=== PATIENT | male | born 1985 | race Caucasian/White ===

== ENCOUNTER → 2018-05-13 09:45 | Outpatient (REF) | payer BC, SELFPAY ==
[2018-05-13 12:31] LABS: HCT 46.4 % (40.0-50.0); HGB 15.8 g/dL (13.5-17.5); Mean Corp. HGB Concentration 34.1 g/dL (32.0-36.0); Mean Corpuscular Hemoglobin 29.7 pg (27.0-33.0); Mean Corpuscular Volume 87.2 fL (80-95); Platelet Count 225 x1000/uL (130-400); RBC 5.32 m/cumm (4.50-6.00); RBC Distribution Width 13.2 % (11.8-14.1); White Blood Cell Count 8.94 k/cumm (4.4-10.8)
[2018-05-13 12:50] LABS: ALT 128 U/L (12-78); AST 41 U/L (15-37); Albumin 4.2 g/dL (3.4-5.0); Alkaline Phosphatase 66 U/L (46-116); Anion Gap 11.6 mmol/L (3-11); BUN 15 mg/dL (7-18); Bilirubin, Total 1.3 mg/dL (0.2-1.0); CO2 24.4 mmol/L (21.0-32.0); CREATININE 1.08 mg/dL (0.70-1.30); Calcium 9.1 mg/dL (8.5-10.1); Chloride 104 mmol/L (98-107); Cholesterol 218 mg/dL (50-200); Glucose 88 mg/dL (70-100); HDL Cholesterol 45 mg/dL (40-60); LDL CHOLESTEROL 151 mg/dL (<100); Potassium 4.3 mmol/L (3.5-5.1); Sodium 140 mmol/L (136-145); Total Protein 7.4 g/dL (6.4-8.2); Triglyceride 166 mg/dL (30-150)
== END ==
LOC: NCHCN 09:45
PROVIDERS: PCP Family Medicine; Visit Provider Family Medicine
DX: Z00.00 Encounter for general adult medical examination without abnormal findings (principal); Z13.0 Encounter for screening for diseases of the blood and blood-forming organs and certain disorders involving the immune mechanism; Z13.228 Encounter for screening for other metabolic disorders; Z13.220 Encounter for screening for lipoid disorders
CPT/HCPCS: 80053; 80061; 83721; 85027

== ENCOUNTER → 2018-05-20 16:33 | Outpatient (REF) | payer BC, SELFPAY ==
[2018-05-20 23:45] LABS: COMMENT (LAB VIEW ONLY) 175.35 mg/dL
== END ==
LOC: NCHCN 16:33
PROVIDERS: PCP Family Medicine; Visit Provider Family Medicine
DX: I10 Essential (primary) hypertension (principal)
CPT/HCPCS: 82043; 82570

== ENCOUNTER 2019-03-17 23:54 | Emergency (ER) | payer BC, SELFPAY ==
[2019-03-18 00:04] VITALS: BP 145/79; PULSE 117; RESP 18; TEMP 36.4; O2SAT 100
--- NOTE | 2019-03-18 00:33 | W.ED.GENAD ---
Discharge Plan Disposition Patient Disposition: HOME Condition: Good Discharge Details Chief Complaint: Nk/Back Pain Clinical Impression: Low back strain, Muscle spasm Primary Care Provider: Genie Gaines ED Provider: Tino Oconnors and New Rx's Prescriptions: New lidocaine [Lidoderm] 5 % Adhesive Patch,Medicated 1 patch topical DIRECTED Qty: 15 RF: 0 cyclobenzaprine [cyclobenzaprine] 10 MG tablet 10 mg PO Q6H PRN PRN (Reason: Spasms) Qty: 15 RF: 0 ibuprofen 600 mg tablet 600 mg PO TID-QID PRN (Reason: pain) Qty: 20 RF: 0 Continued lisinopril 5 MG tablet 5 mg PO DAILY RF: 0 Discharge Instructions Instructions: Low Back Strain (ED), Muscle Spasm (ED) Additional Instructions: Take it easy over the next few days but do not just lie around. You need to do gentle stretching and continue to move so he did not get more stiff. Ice on and off for the next couple of days. Switch over to heat this weekend. Follow-up with primary care next week if not doing better. Return to emergency department if you develop significantly worsening pain, fever, abdominal pain, neurologic symptoms such as numbness or weakness in the legs, bladder or bowel dysfunction Referrals: Genie Gaines [Primary Care Provider] - Medical Decision Making Patient presenting with low back strain and muscle spasm status post injury earlier today while playing [employer]. He has no neurologic symptoms. He has normal strength and sensation distally. He has no abdominal pain and his abdominal exam is benign. He is tender in the right lumbar/sacral area. There is no spinal tenderness. Patient moving a little better now and did take ibuprofen at home. Will apply Lidoderm patch here. Will also give Flexeril. Will continue ibuprofen. Ice on and off for the next 48 hours. Gentle stretching and movement. Switch over to heat on the weekend. Follow-up with primary care next week if continued problems. Off work for the weekend. Return to ED for abdominal pain, neurologic symptoms, bladder or bowel dysfunction. HPI General Mode of arrival: EMS. Date/Time Provider Initiated Documentation: 03/18/19 00:22. Limitations to Documentation: no limitations. Information obtained by: patient. HPI Narrative: Patient presents to ED by ambulance with severe low back spasm. Patient injured his back earlier today while playing [employer]. He definitely felt the injury occur but did not think much of it. However, as time went on back became more stiff. When he tried to get up to go to the bathroom he developed severe lancing pain in the right lower back radiating across the left. He was unable to move because of the pain. There is no radiation of pain down his legs. He did take ibuprofen as well as a couple shots of vodka. EMS was called because he was so uncomfortable. He has no abdominal pain. He has no neurologic symptoms. He is doing a little better and able to move a little better currently. Related Data Home Medications Medication Instructions Recorded Confirmed lisinopril 5 mg PO DAILY 01/31/16 03/18/19 cyclobenzaprine 10 mg PO Q6H PRN PRN #15 tab 03/18/19 ibuprofen 600 mg PO TID-QID PRN #20 tab 03/18/19 lidocaine [Lidoderm] 1 patch TOPICAL DIRECTED #15 03/18/19 each Previous Rx's Medication Instructions Recorded cyclobenzaprine 10 mg PO Q6H PRN PRN #15 tab 03/18/19 ibuprofen 600 mg PO TID-QID PRN #20 tab 03/18/19 lidocaine [Lidoderm] 1 patch TOPICAL DIRECTED #15 03/18/19 each Allergies Allergy/AdvReac Type Severity Reaction Status Date / Time No Known Allergies Allergy Unverified 03/18/19 00:14 General Stated Complaint: Nk/Back Pain HANH: 3 Review of Systems Review of Systems As documented in HPI otherwise negative as below. Const: no fever, chills, weakness Resp: no cough, SOB, pleuritic pain CV: no CP, diaphoresis, edema, syncope GI: no abdominal pain, nausea, vomiting, diarrhea Neuro: no headache, numbness, focal weakness, confusion PFSH Medical History HTN (hypertension) (Chronic) Social History Smoking/Tobacco Use Status: Never Alcohol Intake: current Alcohol Intake frequency: holidays/special occasions only Drug use: Current Sobriety Do you feel safe at home: Yes Do you feel safe in your relationship?: Yes Exam Narrative Exam Narrative: Vitals: Afebrile. Elevated heart rate and blood pressure likely due to discomfort. Const: WDWN male in NAD. HEENT: NC/AT. Eyes: Normal conjunctiva and sclera. Neck: Supple. Trachea midline. Lungs: Normal respiratory effort. Cor: RRR. Good peripheral pulses. GI: Soft. NT/ND. No guarding or rebound. Back: No CVAT. Tender to palpation in the low right lumbar/sacral area. Limited ROM of lower back and lower extremities because of low back pain. Neuro: A+O x 3. CN grossly in tact. Normal strength and sensation in the lower extremities. Ext: No C/C/E. No deformity or tenderness. Skin: Warm and dry without rash. Course Vital Signs Temperature 97.5 F L 03/18/19 00:04 Pulse 117 H 03/18/19 00:04 Respiratory Rate 18 03/18/19 00:04 Blood Pressure 145/79 H 03/18/19 00:04 Pulse Oximetry 100 03/18/19 00:04 Temperature 97.5 F L 03/18/19 00:04 Temperature Source Temporal Artery Scan 03/18/19 00:04 Pulse 117 H 03/18/19 00:04 Respiratory Rate 18 03/18/19 00:04 Respiratory Effort 03/18/19 00:04 Blood Pressure 145/79 H 03/18/19 00:04 Pulse Oximetry 100 03/18/19 00:04 Oxygen Delivery Method Room Air 03/18/19 00:04 Oxygen Flow Rate 0 03/18/19 00:04 Pain Level 3 03/18/19 00:12 Comment 03/18/19 00:04
[2019-03-18] MEDS: Cyclobenzaprine 10 MG TAB PO (00:42)
[2019-03-18] MEDS: Lidocaine 5% Patch 1 PATCH TP ×2 (00:42→01:43)
--- NOTE | 2019-03-18 00:46 | ED.GENADUL_ITS ---
Discharge Plan Disposition Patient Disposition: HOME Condition: Good Discharge Details Chief Complaint: Nk/Back Pain Clinical Impression: Low back strain, Muscle spasm Primary Care Provider: Genie Gaines ED Provider: Tino Oconnors and New Rx's Prescriptions: New lidocaine [Lidoderm] 5 % Adhesive Patch,Medicated 1 patch topical DIRECTED Qty: 15 RF: 0 cyclobenzaprine [cyclobenzaprine] 10 MG tablet 10 mg PO Q6H PRN PRN (Reason: Spasms) Qty: 15 RF: 0 ibuprofen 600 mg tablet 600 mg PO TID-QID PRN (Reason: pain) Qty: 20 RF: 0 Continued lisinopril 5 MG tablet 5 mg PO DAILY RF: 0 Discharge Instructions Instructions: Low Back Strain (ED), Muscle Spasm (ED) Additional Instructions: Take it easy over the next few days but do not just lie around. You need to do gentle stretching and continue to move so he did not get more stiff. Ice on and off for the next couple of days. Switch over to heat this weekend. Follow-up with primary care next week if not doing better. Return to emergency department if you develop significantly worsening pain, fever, abdominal pain, neurologic symptoms such as numbness or weakness in the legs, bladder or bowel dysfunction Referrals: Genie Gaines [Primary Care Provider] - Medical Decision Making Patient presenting with low back strain and muscle spasm status post injury earlier today while playing [employer]. He has no neurologic symptoms. He has normal strength and sensation distally. He has no abdominal pain and his abdominal exam is benign. He is tender in the right lumbar/sacral area. There is no spinal tenderness. Patient moving a little better now and did take ibuprofen at home. Will apply Lidoderm patch here. Will also give Flexeril. Will continue ibuprofen. Ice on and off for the next 48 hours. Gentle stretching and movement. Switch over to heat on the weekend. Follow-up with primary care next week if continued problems. Off work for the weekend. Return to ED for abdominal pain, neurologic symptoms, bladder or bowel dysfunction. HPI General Mode of arrival: EMS . Date/Time Provider Initiated Documentation: 03/18/19 00:22 . Limitations to Documentation: no limitations . Information obtained by: patient . HPI Narrative: Patient presents to ED by ambulance with severe low back spasm. Patient injured his back earlier today while playing [employer]. He definitely felt the injury occur but did not think much of it. However, as time went on back became more stiff. When he tried to get up to go to the bathroom he developed severe lancing pain in the right lower back radiating across the left. He was unable to move because of the pain. There is no radiation of pain down his legs. He did take ibuprofen as well as a couple shots of vodka. EMS was called because he was so uncomfortable. He has no abdominal pain. He has no neurologic symptoms. He is doing a little better and able to move a little better currently. Related Data Home Medications Medication Instructions Recorded Confirmed lisinopril 5 mg PO DAILY 01/31/16 03/18/19 cyclobenzaprine 10 mg PO Q6H PRN PRN #15 tab 03/18/19 ibuprofen 600 mg PO TID-QID PRN #20 tab 03/18/19 lidocaine [Lidoderm] 1 patch TOPICAL DIRECTED #15 03/18/19 each Previous Rx's Medication Instructions Recorded cyclobenzaprine 10 mg PO Q6H PRN PRN #15 tab 03/18/19 ibuprofen 600 mg PO TID-QID PRN #20 tab 03/18/19 lidocaine [Lidoderm] 1 patch TOPICAL DIRECTED #15 03/18/19 each Allergies Allergy/AdvReac Type Severity Reaction Status Date / Time No Known Allergies Allergy Unverified 03/18/19 00:14 General Stated Complaint: Nk/Back Pain HANH: 3 Review of Systems Review of Systems As documented in HPI otherwise negative as below. Const: no fever, chills, weakness Resp: no cough, SOB, pleuritic pain CV: no CP, diaphoresis, edema, syncope GI: no abdominal pain, nausea, vomiting, diarrhea Neuro: no headache, numbness, focal weakness, confusion PFSH Medical History HTN (hypertension) (Chronic) Social History Smoking/Tobacco Use Status: Never Alcohol Intake: current Alcohol Intake frequency: holidays/special occasions only Drug use: Current Sobriety Do you feel safe at home: Yes Do you feel safe in your relationship?: Yes Exam Narrative Exam Narrative: Vitals: Afebrile. Elevated heart rate and blood pressure likely due to discomfort. Const: WDWN male in NAD. HEENT: NC/AT. Eyes: Normal conjunctiva and sclera. Neck: Supple. Trachea midline. Lungs: Normal respiratory effort. Cor: RRR. Good peripheral pulses. GI: Soft. NT/ND. No guarding or rebound. Back: No CVAT. Tender to palpation in the low right lumbar/sacral area. Limited ROM of lower back and lower extremities because of low back pain. Neuro: A+O x 3. CN grossly in tact. Normal strength and sensation in the lower extremities. Ext: No C/C/E. No deformity or tenderness. Skin: Warm and dry without rash. Course Vital Signs Temperature 97.5 F L 03/18/19 00:04 Pulse 117 H 03/18/19 00:04 Respiratory Rate 18 03/18/19 00:04 Blood Pressure 145/79 H 03/18/19 00:04 Pulse Oximetry 100 03/18/19 00:04 Temperature 97.5 F L 03/18/19 00:04 Temperature Source Temporal Artery Scan 03/18/19 00:04 Pulse 117 H 03/18/19 00:04 Respiratory Rate 18 03/18/19 00:04 Respiratory Effort 03/18/19 00:04 Blood Pressure 145/79 H 03/18/19 00:04 Pulse Oximetry 100 03/18/19 00:04 Oxygen Delivery Method Room Air 03/18/19 00:04 Oxygen Flow Rate 0 03/18/19 00:04 Pain Level 3 03/18/19 00:12 Comment 03/18/19 00:04
[2019-03-18 04:34] VITALS: BP 144/84; PULSE 88; RESP 20; O2SAT 100
== END 2019-03-18 04:34 | disposition home or self-care (01) ==
LOC: ER 03-18 04:32
PROVIDERS: Emergency Provider Emergency Medicine; PCP Family Medicine
DX: M62.830 Muscle spasm of back (principal); S39.012A Strain of muscle, fascia and tendon of lower back, initial encounter; X50.9XXA Other and unspecified overexertion or strenuous movements or postures, initial encounter; Y93.73 Activity, racquet and hand sports
CPT/HCPCS: 99284

== ENCOUNTER 2019-08-25 11:08 | Outpatient (REF) | payer BC, SELFPAY ==
[2019-08-25 14:04] LABS: ALT 100 U/L (16-63); AST 35 U/L (15-37); Albumin 4.3 g/dL (3.4-5.0); Alkaline Phosphatase 64 U/L (46-116); Anion Gap 10.6 mmol/L (3-11); BUN 19 mg/dL (7-18); Bilirubin, Total 1.3 mg/dL (0.2-1.0); CO2 29.4 mmol/L (21.0-32.0); CREATININE 0.99 mg/dL (0.70-1.30); Calcium 9.8 mg/dL (8.5-10.1); Calculated LDL 158 mg/dL; Chloride 103 mmol/L (98-107); Cholesterol 252 mg/dL (50-200); Glucose 94 mg/dL (70-100); HDL Cholesterol 47 mg/dL (40-60); Potassium 4.3 mmol/L (3.5-5.1); Sodium 143 mmol/L (136-145); Triglyceride 235 mg/dL (30-150)
== END 2019-08-25 11:28 ==
LOC: NCHCN 11:08
PROVIDERS: PCP Family Medicine; Visit Provider Family Medicine
DX: I10 Essential (primary) hypertension (principal); Z00.00 Encounter for general adult medical examination without abnormal findings
CPT/HCPCS: 80053; 80061

== ENCOUNTER 2020-09-13 09:22 | Outpatient (REF) | payer BC, SELFPAY ==
[2020-09-13 22:27] LABS: Abs Immature Grans 0.04 10^3/uL (0.0-0.06); Absolute Basophil Count 0.07 10^3/uL (0.0-0.2); Absolute Eosinophil Count 0.25 10^3/uL (0.0-0.7); Absolute Lymphocyte Count 3.74 10^3/uL (1.2-3.4); Absolute Monocyte Count 0.67 10^3/uL (0.1-0.8); Absolute Neutrophil Count 3.89 10^3/uL (1.2-6.7); Basophils % 0.8; Eosinophils % 2.9; HCT 47.3 % (40.0-50.0); HGB 15.7 g/dL (13.5-17.5); Immature Grans % 0.5; Lymphocytes % 43.2; MCHC 33.2 % (32.0-36.0); MCV 90.4 fL (80-95); Monocytes % 7.7; Neutrophils % 44.9; Nucleated RBC 0 %; Platelet Count 234 10^3/uL (130-400); RBC 5.23 10^6/uL (4.36-5.78); RDW 12.2 % (11.8-14.1); RDW-SD 39.9 fL; WBC 8.66 10^3/uL (4.4-10.8)
[2020-09-13 22:41] LABS: Calculated LDL 146 mg/dL (<100); Cholesterol 220 mg/dL (<200); HDL Cholesterol 42 mg/dL (40-60); Triglyceride 163 mg/dL (<150)
[2020-09-14 04:41] LABS: Vitamin D 25 Total 20.6 ng/ml (30-100)
== END 2020-09-13 09:42 ==
LOC: NCHCN 09:22
PROVIDERS: PCP Family Medicine; Visit Provider Family Medicine
DX: Z00.00 Encounter for general adult medical examination without abnormal findings (principal); I10 Essential (primary) hypertension
CPT/HCPCS: 80061; 82306; 85025

== ENCOUNTER 2021-03-26 08:11 | Outpatient (REF) | payer BC, SELFPAY ==
[2021-03-26 15:10] LABS: ALT 54 U/L (16-63); AST 30 U/L (15-37); Albumin 4.1 g/dL (3.4-5.0); Alkaline Phosphatase 82 U/L (46-116); Anion Gap 8.7 mmol/L (3-11); BUN 17 mg/dL (7-18); Bilirubin, Total 1.2 mg/dL (0.2-1.0); CO2 29.3 mmol/L (21.0-32.0); CREATININE 1.1 mg/dL (0.70-1.30); Calcium 9.7 mg/dL (8.5-10.1); Calculated LDL 148 mg/dL (<100); Chloride 106 mmol/L (98-107); Cholesterol 214 mg/dL (<200); Glucose 98 mg/dL (74-106); HDL Cholesterol 40 mg/dL (40-60); Potassium 4.8 mmol/L (3.5-5.1); Sodium 144 mmol/L (136-145); Total Protein 7.6 g/dL (6.4-8.2); Triglyceride 132 mg/dL (<150)
== END 2021-03-26 08:12 | disposition home or self-care (01) ==
LOC: NCHCN 08:11
PROVIDERS: PCP Family Medicine; Visit Provider Family Medicine
DX: Z00.00 Encounter for general adult medical examination without abnormal findings (principal); I10 Essential (primary) hypertension
CPT/HCPCS: 80053; 80061

== ENCOUNTER 2022-03-09 23:35 | Emergency (ER) | payer BC, SELFPAY ==
[2022-03-09 23:53] VITALS: BP 156/112; PULSE 77; RESP 18; TEMP 37; O2SAT 99
--- NOTE | 2022-03-10 00:15 | DI.CT_ITS ---
Exam(s) CT ABDOMEN PELVIS WO EXAM: CT ABDOMEN PELVIS WO CLINICAL HISTORY: ruq pain, eval gb. TECHNIQUE: Imaging Protocol: Axial computed tomography images with coronal and sagittal reformatted images were created and reviewed. COMPARISON: No exams were available for comparison FINDINGS: ABDOMEN: Lung Bases: Normal where visualized. Liver: No hepatomegaly. No measurable mass. Gallbladder and biliary tract: No radiodense calculus or biliary ductal dilation. Pancreas: Normal density, no abnormal calcifications or inflammatory process. Spleen: Normal. Kidneys: Normal size, contour and axis.No radiodense stones or obstructive uropathy. No masses seen. Adrenal glands: No mass is seen. Lymph nodes: There are prominent lymph nodes seen in the right lower quadrant measuring up to 1 cm wh ich may reflect mesenteric adenitis. Abdominal Aorta: Abdominal portion non-dilated. PELVIS: Bladder:Symmetric distention, no gross wall thickening. Bowel: No obstruction or bowel wall thickening. Appendix is unremarkable. Peritoneal cavity: No ascites, collection or mesenteric inflammatory response. No free air. Reproductive organs: Within normal limits. Bones: Within normal limits. Soft Tissues: Within normal limits. IMPRESSION: 1. Unremarkable gallbladder. No biliary ductal dilatation. 2. Mildly prominent lymph nodes in the right lower quadrant which may represent mesenteric adenitis. RADIATION DOSE DELIVERED: 1,203.32mGy.cm Total DLP DATA REPOSITORY: All CT scans at this facility are submitted to the National Radiology Data Registry (NRDR) Dose Index Registry (DIR) with the [employer] ([employer]). RADIATION OPTIMIZATION: All CT scans at this facility use at least one of these dose optimization te chniques: automated exposure control; mA and/or kV adjustment per patient size (includes targeted exa ms where dose is matched to clinical indication); or iterative reconstruction.
--- NOTE | 2022-03-10 00:50 | ED.GENADUL_ITS ---
Discharge Plan Disposition Patient Disposition: HOME Condition: Good Discharge Details Clinical Impression: Hepatitis, Abdominal pain Primary Care Provider: Genie Gaines ED Provider: Guido Garza Home Meds and New Rx's Prescriptions: Continued lisinopril 5 MG tablet 5 mg PO DAILY lidocaine [Lidoderm] 5 % Adhesive Patch,Medicated 1 patch topical DIRECTED Qty: 15 0RF Rx Instructions: 12 hours on and 12 hours off. Apply 1 patch to most painful area. cyclobenzaprine 10 MG tablet 10 mg PO Q6H PRN PRN (Reason: Spasms) Qty: 15 0RF ibuprofen 600 mg tablet 600 mg PO TID-QID PRN (Reason: pain) Qty: 20 0RF Discharge Instructions Instructions: Abdominal Pain (ED) Additional Instructions: At this time you have evidence of very mild hepatitis. It is not overly clear as to why you have this. We have scheduled an outpatient ultrasound for further evaluation. They will contact you for the appointment time. Additionally on Friday/Friday/, please return to have your blood redrawn once to reassess where your liver function is. Additionally, it is not abundantly clear if the supplements you are taking are causing the, and I would recommend that you hold the supplements for the time being. Please avoid any alcohol, do not take any Tylenol. Additionally there is concern that some of your pain may be secondary to a spasm of your gallbladder. Please avoid any fatty foods or greasy foods. If you notice any worsening of your symptoms, or any new symptoms such as vomiting, diarrhea, fever, chills, shortness of breath, chest pain, numbness, weakness, or fainting , please return immediately to the emergency department for reevaluation. Please follow up with your primary care provider as soon as possible for reassessment and reevaluation. As always, it was a pleasure participating in your medical care today. Referrals: Genie Gaines [Primary Care Provider] - Medical Decision Making 36-year-old male with no significant past medical history who presents today for evaluation of right upper quadrant pain. Patient ate a mixed vegetable dinner with some garlic bread at around 7 PM, about 3 hours later at around 1030 he developed sudden onset right upper quadrant pain with associated nausea, one episode of vomiting, and one episode of diarrhea. He describes the pain is achy with a sharp component. It goes from the right upper quadrant to his right back. He denies any urinary complaints, frequency, hematuria or dysuria. At the time the patient arrived in the ER the pain transition from a 10 out of 10 down to a 3 out of 10. However during assessment the pain went back up to 7 out of 10. Patient does admit to a slight amount of sweating. He denies any chest pain or shortness of breath. He denies any family history of cardiac disease at young age. He denies any numbness or tingling. He denies any tearing or ripping sensation in the chest. He denies any pleuritic chest pain. No other complaints at this time. No other modifying factors Physical exam demonstrates mild right upper quadrant pain. Bedside ultrasound shows an enlarged gallbladder. Differential is highest for biliary colic, less likely pancreatitis. Cholecystitis is certainly of concern. Patient did not have an overly fatty meal tonight, however he has been eating extremely low-fat high vegetable diet normally, so a small amount of all of oil may have had a component. We will treat the patient's pain, get laboratory evaluation, CT scan, monitor closely.. Symptoms inconsistent with ACS. 2:14 AM Laboratory work-up has returned, patient has mild white count, no bandemia though. Electrolytes stable. Renal function good. Bilirubin normal. AST is 187, ALT is 171. Patient has never had levels like this before. Lipase normal. Alk phos normal. Patient states that he is in a monogamous relationship. He has not had any seafood for 5 years. He sticks to a diet strictly vegetables. He denies any IV or illicit drug use ever. He has not drunk any alcohol for the past month, and before that he would only drink 2 beers a week. He denies any acetaminophen use. STD related hepatitis is low on the differential, however we will send out a hepatitis panel. Dietary hepatitis is a slight concern. CT scan shows evidence of a normal gallbladder, he does have some mild mesenteric adenitis, there is also some mild. Radiology does recommend further ultrasound evaluation. At this time patient feels well, feels comfortable going home. Of note he is on 2 herbal supplements, ashwagandha and tongcat-ali, and there are certainly some case reports of this causing hepatitis. We will recommend that he stop these. With no evidence of jaundice, persistent right upper quadrant pain, or signs of toxic encephalopathy, I do feel that the patient is stable for discharge with close follow-up. She does already have a PCP follow-up scheduled. We will place an order for an outpatient ultrasound, as well as outpatient repeat labs for reassessment. Recommend cessation of supplements, avoiding Tylenol, avoiding alcohol, and close follow-up. I have extensively reviewed the treatment plan and discharge instructions with the patient. I have addressed all patient concerns at this time. The patient was made aware of what symptoms to monitor for that would warrant a return to the emergency department. Discussed the plan with the patient, they demonstrate verbal understanding and agreement with our assessment and plan at this time. The documentation in this chart was dictated using [employer] dictation software. Please excuse any dictation errors. FINDINGS: Lungs: The visualized lung bases show no consolidation. Liver: The liver is normal in size. There is mild, geographic hepatic steatosis. Gallbladder and bile ducts: No calcified gallstones identified. There is no pericholecystic fluid or gallbladder wall thickening. The common bile duct is normal in diameter. Pancreas: Normal size and homogeneous density. No ductal dilation. Spleen: Normal. No splenomegaly. Adrenal glands: Normal. No mass. Kidneys and ureters: No evidence of hydronephrosis. No renal or ureteral calculi. Stomach and bowel: There is no evidence of small bowel or colonic obstruction. There is moderate fecal stasis throughout the colon. The cecum is in the upper pelvis. The terminal ileum is at the level of the iliac crest. Appendix: A normal appendix is identified Intraperitoneal space: No free air. No significant fluid collection. Vasculature: No abdominal aortic aneurysm. Lymph nodes: Medial to the cecum there is a conglomerate of nonenlarged but prominent mesenteric lymph nodes as large as 10 mm consistent with mesenteric adenitis. Urinary bladder: The bladder shows a normal contour and is free of calcific opac ities. Reproductive: Unremarkable as visualized. Bones/joints: No acute fracture. No evidence of bone destruction. Soft tissues: Unremarkable. IMPRESSION: 1. Normal CT appearance of the gallbladder and bile ducts. 2. Findings consistent with mesenteric adenitis. Clinical correlation is necessary. 3. Mild geographic hepatic steatosis. Consider correlation with a 2nd modality such as ultrasound or MRI to exclude the less likely possibility of an infiltrative process, if clinically indicated. 4. Moderate colonic fecal stasis. Thank you for allowing us to participate in the care of your patient. Dictated and Authenticated by: José Sorto MD 03/10/2022 1:30 AM Eastern Time ([place] & [place]) HPI General Date/Time Provider Initiated Documentation: 03/09/22 23:40 . HPI Narrative: 36-year-old male with no significant past medical history who presents today for evaluation of right upper quadrant pain. Patient ate a mixed vegetable dinner with some garlic bread at around 7 PM, about 3 hours later at around 1030 he developed sudden onset right upper quadrant pain with associated nausea, one episode of vomiting, and one episode of diarrhea. He describes the pain is achy with a sharp component. It goes from the right upper quadrant to his right back. He denies any urinary complaints, frequency, hematuria or dysuria. At the time the patient arrived in the ER the pain transition from a 10 out of 10 down to a 3 out of 10. However during assessment the pain went back up to 7 out of 10. Patient does admit to a slight amount of sweating. He denies any chest pain or shortness of breath. He denies any family history of cardiac disease at young age. He denies any numbness or tingling. He denies any tearing or ripping sensation in the chest. He denies any pleuritic chest pain. No other complaints at this time. No other modifying factors Related Data Home Medications Medication Instructions Recorded Confirmed lisinopril 5 mg tablet 5 mg PO DAILY 01/31/16 03/10/22 cyclobenzaprine 10 mg tablet 10 mg PO Q6H PRN PRN Spasms #15 03/18/19 tabs ibuprofen 600 mg tablet 600 mg PO TID-QID PRN pain #20 tabs 03/18/19 lidocaine 5 % topical patch 1 patch topical DIRECTED #15 ea 03/18/19 (Lidoderm) Previous Rx's Medication Instructions Recorded cyclobenzaprine 10 mg tablet 10 mg PO Q6H PRN PRN Spasms #15 03/18/19 tabs ibuprofen 600 mg tablet 600 mg PO TID-QID PRN pain #20 tabs 03/18/19 lidocaine 5 % topical patch 1 patch topical DIRECTED #15 ea 03/18/19 (Lidoderm) Allergies Allergy/AdvReac Type Severity Reaction Status Date / Time No Known Allergies Allergy Unverified 03/09/22 23:59 General Stated Complaint: Abd Prob HANH: 3 Review of Systems All systems reviewed & are unremarkable except as noted in HPI and below PFSH All Active Problems (Updated 03/10/22 @ 03:15 by Guido Garza DO) Hepatitis (Acute) Abdominal pain (Acute) Medical History HTN (hypertension) Social History Smoking/Tobacco Use Status: Never Smoking risk assessment performed?: Yes Alcohol Intake: former Drug use: Current Sobriety Substance use type: does not use Do you feel safe at home: Yes Do you feel safe in your relationship?: Yes Exam Narrative Exam Narrative: 1.Const: Well-nourished, Well-developed, appearing stated age 2.Eyes: PERRL, no conjunctival injection, and symmetrical lids. 3.ENT: Atraumatic external nose and ears. Moist MM. Neck: Symmetric, trachea midline, No thyromegaly. 4.CVS: +S1/S2, No murmurs or gallops. Peripheral pulses 2+ and equal in all extremities. Brisk capillary refill in all extremities. 5.RESP: Unlabored respiratory effort. Clear to auscultation bilaterally. No wheezes rales or rhonchi 6.GI: Soft, nondistended. Mild right upper quadrant tenderness on palpation. Negative Cerrato sign. No pain at McBurney's point. No flank or CVA tenderness 7.MSK: Normocephalic/Atraumatic, Extremities w/o deformity or ttp No cyanosis or clubbing, Normal movement of all extremities 8.Skin: Warm, Dry. No rashes or lesions. 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 Sensation grossly intact, no focal neurologic deficits. 10.Psych: (AAO) x3. Appropriate mood and affect Course Vital Signs Vital signs: Vital Signs Temperature 37.0 C 03/09/22 23:53 Pulse 77 03/09/22 23:53 Respiratory Rate 18 03/09/22 23:53 Blood Pressure 156/112 H 03/09/22 23:53 Pulse Oximetry 99 03/09/22 23:53 Temperature 37.0 C 03/09/22 23:53 Temperature Source Oral 03/09/22 23:53 Pulse 77 03/09/22 23:53 Respiratory Rate 18 03/09/22 23:53 Respiratory Effort Non-Labored 03/09/22 23:56 Blood Pressure 156/112 H 03/09/22 23:53 Blood Pressure Position Standing 03/09/22 23:53 Pulse Oximetry 99 03/09/22 23:53 Pain Level 1 03/09/22 23:53
[2022-03-10] MEDS: Ketorolac 15 MG/ML VIAL IVP (01:03)
[2022-03-10] MEDS: Normal Saline 1,000 ML 1000 ML IV (01:04)
[2022-03-10] MEDS: MORPHine 4 MG/ML SYR IVP (01:04)
[2022-03-10 01:12] LABS: Abs Immature Grans 0.08 10^3/uL (0.0-0.06); Absolute Basophil Count 0.07 10^3/uL (0.0-0.2); Absolute Eosinophil Count 0.07 10^3/uL (0.0-0.7); Absolute Monocyte Count 0.97 10^3/uL (0.1-0.8); Absolute Neutrophil Count 13.12 10^3/uL (1.2-6.7); Basophils % 0.4; Eosinophils % 0.4; HCT 45.1 % (40.0-50.0); HGB 15.3 g/dL (13.5-17.5); Immature Grans % 0.5; Lymphocytes % 14.5; MCH 29.4 pg (27.0-33.0); MCHC 33.9 % (32.0-36.0); MCV 87 fL (80-95); Monocytes % 5.8; Neutrophils % 78.4; Platelet Count 269 10^3/uL (130-400); RBC 5.21 10^6/uL (4.36-5.78); RDW 12.5 % (11.8-14.1); RDW-SD 39.3 fL; WBC 16.73 10^3/uL (4.4-10.8)
[2022-03-10 01:22] LABS: Absolute Lymphocyte Count 2.43 10^3/uL (1.2-3.4)
--- NOTE | 2022-03-10 01:30 | DI.VRAD_ITS ---
Addendum created by José Sorto MD on 03/10/2022 1:34:54 AM EDT: Findings were discussed with JEAN-PIERRE DUKES at 03/10/2022 1:34 AM EDT. Initial report created on 03/10/2022 1:30:26 AM EDT: PROCEDURE INFORMATION: Exam: CT Abdomen And Pelvis Without Contrast Exam date and time: 03/10/2022 12:37 AM Age: 36 years old Clinical indication: Other: Ruq pain, eval gb TECHNIQUE: Imaging protocol: Computed tomography of the abdomen and pelvis without contrast. COMPARISON: No relevant prior studies available. FINDINGS: Lungs: The visualized lung bases show no consolidation. Liver: The liver is normal in size. There is mild, geographic hepatic steatosis. Gallbladder and bile ducts: No calcified gallstones identified. There is no pericholecystic fluid or gallbladder wall thickening. The common bile duct is normal in diameter. Pancreas: Normal size and homogeneous density. No ductal dilation. Spleen: Normal. No splenomegaly. Adrenal glands: Normal. No mass. Kidneys and ureters: No evidence of hydronephrosis. No renal or ureteral calculi. Stomach and bowel: There is no evidence of small bowel or colonic obstruction. There is moderate fecal stasis throughout the colon. The cecum is in the upper pelvis. The terminal ileum is at the level of the iliac crest. Appendix: A normal appendix is identified. Intraperitoneal space: No free air. No significant fluid collection. Vasculature: No abdominal aortic aneurysm. Lymph nodes: Medial to the cecum there is a conglomerate of nonenlarged but prominent mesenteric lymph nodes as large as 10 mm consistent with mesenteric adenitis. Urinary bladder: The bladder shows a normal contour and is free of calcific opacities. Reproductive: Unremarkable as visualized. Bones/joints: No acute fracture. No evidence of bone destruction. Soft tissues: Unremarkable. IMPRESSION: 1. Normal CT appearance of the gallbladder and bile ducts. 2. Findings consistent with mesenteric adenitis. Clinical correlation is necessary. 3. Mild geographic hepatic steatosis. Consider correlation with a 2nd modality such as ultrasound or MRI to exclude the less likely possibility of an infiltrative process, if clinically indicated. 4. Moderate colonic fecal stasis. Dictated and Authenticated by: José Sorto MD. Ordering:SONNY Lora MD
[2022-03-10 01:31] LABS: ALT 171 U/L (16-63); AST 187 U/L (15-37); Albumin 4.3 g/dL (3.4-5.0); Alkaline Phosphatase 90 U/L (46-116); Anion Gap 9.4 mmol/L (3-11); BUN 15 mg/dL (7-18); CO2 27.6 mmol/L (21.0-32.0); CREATININE 1.3 mg/dL (0.70-1.30); Calcium 9.4 mg/dL (8.5-10.1); Chloride 106 mmol/L (98-107); Glucose 121 mg/dL (74-106); Lipase 110 U/L (73-393); Potassium 3.9 mmol/L (3.5-5.1); Sodium 143 mmol/L (136-145)
[2022-03-10 02:42] LABS: Bilirubin Small (Negative); Blood Trace-intact (Negative); Clarity Clear (Clear); Glucose Negative (Negative); Ketones Trace mg/dL (Negative); Leukocyte Esterase Negative (Negative); Nitrite Negative (Negative); Specific Gravity >= 1.030 (1.005-1.025)
[2022-03-10 02:56] LABS: Bacteria Rare HPF (Negative); C & S Indicated? No; Crystals Negative HPF (Negative); Epithelial Cells Rare HPF (Negative); Mucus Heavy (Negative); WBC 0-2 HPF (0-5)
[2022-03-10 03:21] VITALS: BP 130/83; PULSE 86; RESP 16; O2SAT 100
[2022-03-11 09:49] LABS: Hepatitis A Antibody IgM Negative (Negative); Hepatitis B Core Antibody Negative (Negative); Hepatitis B surface Ag Negative (Negative); Hepatitis C Ab w Rflx HCV PCR Negative (Negative)
== END 2022-03-10 03:27 | disposition home or self-care (01) ==
PROVIDERS: Emergency Provider Student in an Organized Health Care Education/Training Program; PCP Family Medicine
DX: B17.9 Acute viral hepatitis, unspecified (principal); R10.11 Right upper quadrant pain
CPT/HCPCS: 80053; 83690; 86704; 86709; 86803; 87340; 96361; 96374; 96375; 99284; 74176; 81003; 81015; 85025; J1885; J2270

== ENCOUNTER 2022-03-12 13:22 | Outpatient (CLI) | payer BC, SELFPAY ==
[2022-03-12 13:43] LABS: ALT 750 U/L (16-63); AST 187 U/L (15-37); Alkaline Phosphatase 160 U/L (46-116); Bilirubin, Direct 0.5 mg/dL (0.0-0.2); Bilirubin, Total 1.8 mg/dL (0.2-1.0)
== END 2022-03-12 13:23 | disposition home or self-care (01) ==
LOC: LBO 13:22
PROVIDERS: PCP Family Medicine; Visit Provider Student in an Organized Health Care Education/Training Program
DX: K75.2 Nonspecific reactive hepatitis
CPT/HCPCS: 36415; 82247; 82248; 84075; 84450; 84460

== ENCOUNTER 2022-03-15 16:19 | Outpatient (CLI) | payer BC, SELFPAY ==
[2022-03-15 12:16] LABS: Abs Immature Grans 0.02 10^3/uL (0.0-0.06); Absolute Basophil Count 0.05 10^3/uL (0.0-0.2); Absolute Eosinophil Count 0.28 10^3/uL (0.0-0.7); Absolute Lymphocyte Count 3.49 10^3/uL (1.2-3.4); Absolute Monocyte Count 0.65 10^3/uL (0.1-0.8); Absolute Neutrophil Count 3.92 10^3/uL (1.2-6.7); Basophils % 0.6; Eosinophils % 3.3; HCT 45.7 % (40.0-50.0); HGB 15.5 g/dL (13.5-17.5); Immature Grans % 0.2; Lymphocytes % 41.5; MCH 29.2 pg (27.0-33.0); MCHC 33.9 % (32.0-36.0); MCV 86 fL (80-95); Monocytes % 7.7; Neutrophils % 46.7; Platelet Count 259 10^3/uL (130-400); RDW 12.7 % (11.8-14.1); RDW-SD 39.5 fL; WBC 8.41 10^3/uL (4.4-10.8)
[2022-03-15 13:12] LABS: ALT 349 U/L (16-63); AST 59 U/L (15-37); Alkaline Phosphatase 127 U/L (46-116); Bilirubin, Direct 0.3 mg/dL (0.0-0.2); Total Protein 7.5 g/dL (6.4-8.2)
[2022-03-18 11:43] LABS: Hep A Total Ab w Rflx IgM Negative (Negative)
== END 2022-03-15 16:20 | disposition home or self-care (01) ==
LOC: LBO 16:21
PROVIDERS: PCP Family Medicine; Visit Provider Family Medicine
DX: R74.8 Abnormal levels of other serum enzymes (principal)
CPT/HCPCS: 36415; 80076; 86709; 85025

== ENCOUNTER 2024-06-03 10:33 | Outpatient (REF) | payer OTHER, SELFPAY ==
--- OUTSIDE RECORDS SUMMARY | 2024-06-03 10:37 | XMS_ITS | Referral Summary ---
Author Organization [facility] Address [address] [place] [address] Care Team Providers Care Crook Operator Name Role Phone Unavailable Primary Care Provider Unavailabl e Social History Tobacco Use Types Packs/Day Years Used Date Smoking Tobacco: Never Assessed Sex and Gender Information Value Date Recorded Sex Assigned at Not on file Gender Identity Not on file Sexual Orientation Not on file Plan of Treatment Not on file
--- OUTSIDE RECORDS SUMMARY | 2024-06-03 10:37 | XMS_ITS | Clinical Summary ---
Author Organization [facility] Address [address] [place] [address] Care Team Providers Care Transition Manager Name Role Phone Unavailable Primary Care Provider Unavailabl e Social History Tobacco Use Types Packs/Day Years Used Date Smoking Tobacco: Never Assessed Sex and Gender Information Value Date Recorded Sex Assigned at Not on file Gender Identity Not on file Sexual Orientation Not on file Plan of Treatment Health Maintenance Due Date Last Done Comments Hepatitis C Screen 1987 Hepatitis B Vaccine (1 of 3 - 19+ 3-dose series) 10/30 COVID-19 Vaccine ( season) 2023
--- OUTSIDE RECORDS SUMMARY | 2024-06-03 10:38 | XMS_ITS | Encounter Summary ---
Author Organization [facility] Address [address] [place] [address] Care Team Providers Care Medical Bill Processor Name Role Phone Unavailable Primary Care Provider Unavailabl e Encounter Details Date Type Department Care Team (Late st Contact Info) Description 03/15/2022 Lab Requisition [facility] Pathology & Laboratory Medicine - [facility] [address] [place] [address] Outr Resulting Lab, Provider Social History Tobacco Use Types Packs/Day Years Used Date Smoking Tobacco: Never Assessed Sex and Gender Information Value Date Recorded Sex Assigned at Not on file Gender Identity Not on file Sexual Orientation Not on file documented as of this encounter Plan of Treatment Not on file documented as of this encounter Procedures Procedure Name Priority Date/Time Associated Diagnosis Comments HEPATITIS A TOTAL ANTIBODY W REFLEX Routine 03/15/2022 12:10 EDT documented in this encounter Results * HEPATITIS A TOTAL ANTIBODY W REFLEX (03/15/2022 12:10 EDT) Hepatitis A Antibody, Total Negative Negative 03/18/2022 11:[address] [facility] Blood VENOUS BLOOD / Unknown 03/15/2022 12:10 EDT 03/15/2022 21:35 EDT [address] [facility] - 03/18/2022 11:38 EDT The result of this assay can be falsely elevated (Positive) due to the consumption of Biotin. Provider Outr Resulting Lab CHEMISTRY & BLOOD GAS ORDERABLES [facility] [address] [place] [address] documented in this encounter Visit Diagnoses Not on filedocumented in this encounter
--- OUTSIDE RECORDS SUMMARY | 2024-06-03 10:38 | XMS_ITS | Encounter Summary ---
Author Organization [facility] Address [address] [place] [address] Care Team Providers Care Communications Tech Name Role Phone Unavailable Primary Care Provider Unavailabl e Encounter Details Date Type Department Care Team (Late st Contact Info) Description 03/10/2022 Lab Requisition [facility] Pathology & Laboratory Medicine - [facility] [address] [place] [address] Outr Resulting Lab, Provider Social History Tobacco [...] Procedure Name Priority Date/Time Associated Diagnosis Comments ACUTE HEPATITIS PROFILE Routine 03/10/2022 0:51 EDT documented in this encounter Results * ACUTE HEPATITIS PROFILE (03/10/2022 0:51 EDT) Hep B Surface Ag Negative Negative 03/11/2022 9:45 EDT [facility] Hep C Antibody Negative Negative 03/11/2022 9:45 EDT [facility] Hepatitis A Antibody, IgM Negative Negative 03/11/2022 9:45 EDT [facility] Comment:The results of this assay can be falsely lowered due to the consumption of Biotin. Hepatitis B Core Ab, Total Negative Negative 03/11/2022 9:45 EDT [facility] Blood VENOUS BLOOD / Unknown 03/10/2022 0:51 EDT 03/10/2022 16:14 EDT Provider Outr Resulting Lab CHEMISTRY & BLOOD GAS ORDERABLES [facility] [address] [place] [address] documented in this encounter Visit Diagnoses Not on filedocumented in this encounter
[2024-06-03 16:07] LABS: ALT 41 U/L (16-63); AST 18 U/L (15-37); Albumin 3.9 g/dL (3.4-5.0); Alkaline Phosphatase 103 U/L (46-116); Anion Gap 9.2 mmol/L (3-11); BUN 17 mg/dL (7-18); Bilirubin, Total 0.86 mg/dL (0.2-1.0); CO2 28.8 mmol/L (21.0-32.0); Calcium 9.3 mg/dL (8.5-10.1); Calculated LDL 85 mg/dL (<100); Chloride 103 mmol/L (98-107); Cholesterol 178 mg/dL (<200); Estimated GFR 100.03 (mL/min/1.73m2); Glucose 93 mg/dL (74-106); HDL Cholesterol 46 mg/dL (40-60); Potassium 4.5 mmol/L (3.5-5.1); Sodium 141 mmol/L (136-145); Total Protein 7.3 g/dL (6.4-8.2); Triglyceride 236 mg/dL (<150); Vitamin D 25 Total 18.9 ng/mL (30-100)
== END 2024-06-03 10:34 | disposition home or self-care (01) ==
LOC: NCHCN 10:33
PROVIDERS: PCP Family Medicine; Visit Provider Family Medicine
DX: I10 Essential (primary) hypertension (principal); Z00.00 Encounter for general adult medical examination without abnormal findings
CPT/HCPCS: 80053; 80061; 82306